=== PATIENT | female | born 1965 | race African-American/Black ===

== ENCOUNTER 2019-07-10 12:10 | Inpatient (IN) | payer BC ==
[~2019-07-10] VITALS: Ht 175.3 cm; Wt 92.3 kg
[~2019-07-10 12:10] MED LIST: HYDRALAZINE HCL10 MG PO; HYDRALAZINE HCL25 MG PO; METOPROLOL SUCC25 MG PO; NIFEDIPINE10 MG PO
[2019-07-10] MEDS ORDERED: HYDRALAZINE HCL 20 MG/ML VIAL IV STA (13:06)
[2019-07-10] MEDS ORDERED: ONDANSETRON HCL INJ 2MG/ML 2ML 2 MG/ML VIAL IV STA ×2 (13:06→16:23)
[2019-07-10] MEDS ORDERED: SODIUM CHLORIDE 0.9% 1000ML 1,000 ML IV STA (13:06)
[2019-07-10 13:23] LABS: BASOPHILS # (AUTO) 0.1 (0.0-0.1); BASOPHILS % 0.6 % (0.0-1.0); EOSINOPHILS # (AUTO) 0.2 (0.0-0.4); EOSINOPHILS % 1.9 % (0.0-6.0); HEMOGLOBIN 7.1 g/dL (12.0-16.0); LYMPHOCYTES # (AUTO) 2.2 (1.0-3.2); LYMPHOCYTES % 27.4 % (18.0-39.1); MEAN CORPUSCULAR HEMOGLOBIN 28.9 pg (28-32); MEAN CORPUSCULAR HGB CONC 31.7 g/dL (31-35); MEAN CORPUSCULAR VOLUME 91.1 fL (81-99); MONOCYTES # (AUTO) 0.6 (0.2-0.8); MONOCYTES % 7.3 % (4.4-11.3); NEUTROPHILS % 62.2 % (38.7-80.0); PLATELET COUNT 191 x10e3/uL (140-360); RED BLOOD COUNT 2.46 x10e6/uL (3.6-5.1); RED CELL DISTRIBUTION WIDTH 15.5 % (11.7-14.4)
[2019-07-10 13:37] LABS: BILIRUBIN,URINE NEGATIVE (NEGATIVE); CLARITY,URINE CLEAR (CLEAR); COLOR,URINE YELLOW (YELLOW); KETONES,URINE NEGATIVE (NEGATIVE); LEUKOCYTE ESTERASE ,URINE SMALL (NEGATIVE); NITRITE,URINE NEGATIVE (NEGATIVE); URINE UROBILINOGEN 0.2 mg/dL (0.2 - 1)
[2019-07-10 13:38] LABS: ALBUMIN 2.7 g/dL (3.5-5.0); ALBUMIN/GLOBULIN RATIO 0.4 (0.8-2.0); ANION GAP 9.4 mmol/L (8-16); CREATININE, SERUM 6.04 mg/dL (0.57-1.11); POTASSIUM 3.4 mmol/L (3.5-5.1)
[2019-07-10 13:39] LABS: HEMATOCRIT 22.4 % (34.2-44.1); PROTEIN,URINE DIPSTICK 2+ (NEGATIVE)
--- NOTE | 2019-07-10 13:42 | Diagnostic Imaging Report ---
Chest, 1 view, 07/10/2019. History: Chest tightness, vomiting. Comparison: None available. Findings: The cardiomediastinal silhouette and pulmonary vasculature are within normal limits for a portable exam. There is no focal consolidation or pleural effusion. There are no acute osseous or soft tissue abnormalities. Impression: No acute cardiopulmonary abnormality. Signed by: Theodore Santos on 07/10/2019 1:39 PM
[2019-07-10 13:44] LABS: BACTERIA,URINE FEW /HPF; EPITHELIAL CELLS,URINE FEW /LPF
[2019-07-10 14:38] LABS: INR 1.08; PROTHROMBIN TIME 14.5 seconds (11.9-14.5)
[2019-07-10 14:39] LABS: PARTIAL THROMBOPLASTIN TIME 30.3 seconds (23.8-35.5)
[2019-07-10] MEDS ORDERED: METOPROLOL TARTRATE INJ 1 MG/ML VIAL ONE (14:55)
[2019-07-10] MEDS ORDERED: METOPROLOL TARTRATE INJ 1 MG/ML VIAL IV ONE (15:00)
--- NOTE | 2019-07-10 16:41 | Diagnostic Imaging Report ---
CT of the abdomen and pelvis, without contrast, 07/10/2019. History: Hypertension, abdominal pain. Comparison: None available. Technique: Multidetector CT scanning of the abdomen and pelvis was performed from the level of the lung bases to the inferior pubic rami without intravenous or oral contrast. Coronal and sagittal multiplanar reformations were obtained. RADIATION DOSE: Total DLP: 766 mGy*cm Dose modulation, iterative reconstruction, and/or weight based adjustment of the mA/kV was utilized to reduce the radiation dose to as low as reasonably achievable. Discussion: Examination is limited without contrast. Lung bases: No visualized abnormalities. Abdomen: The liver is prominent measuring over 18 cm in length in the right midclavicular line. The gallbladder, biliary tree, spleen, pancreas, adrenal glands, and kidneys are unremarkable. The abdominal aorta is within normal limits. There is no bowel dilatation. The appendix is visualized and is normal. There is no evidence of adenopathy or free fluid. A small fat-containing umbilical hernia is present. Pelvis: The bladder, uterus, and adnexa are unremarkable. Bilateral tubal ligation clips are present. There is no evidence of adenopathy. Trace free fluid is present, likely physiologic. Bones and soft tissues: No acute abnormality. IMPRESSION: 1. Mild hepatomegaly. 2. Small fat-containing hernia. Otherwise unremarkable noncontrast exam. No evidence of cholelithiasis, nephrolithiasis, or appendicitis. Signed by: Theodore Santos on 07/10/2019 4:38 PM
[2019-07-10] MEDS ORDERED: METOPROLOL SUCCINATE 25 MG TAB XL PO SCH (17:00)
[2019-07-10] MEDS ORDERED: PROMETHAZINE 25MG/ NS 50ML (IV) IV PRN (17:30)
[2019-07-10] MEDS ORDERED: PROMETHAZINE 25MG/SOD CHL 0.9% 50 ML ONE (17:37)
[2019-07-10] MEDS: CEFTRIAXONE SOD 1 GM/NS 50 ML 50 ML IV SCH (18:06)
[2019-07-10] MEDS: HYDRALAZINE HCL 20 MG/ML VIAL IV PRN (18:06)
[2019-07-10] MEDS ORDERED: ACETAMINOPHEN 325 MG TAB PO PRN (18:45)
[2019-07-10] MEDS: ACETAMINOPHEN 1000 MG/100 ML IV PRN (19:04)
[2019-07-10 20:00] VITALS: BP 189/90
[2019-07-10] MEDS: METOPROLOL SUCCINATE 50 MG TAB XL PO SCH (20:17)
[2019-07-10 20:25] VITALS: BP 183/90
--- NOTE | 2019-07-10 20:25 | NUR ---
New admission came from [facility] in a stretcher with c/o nausea,vomiting.assessment done.no resp.distress.Bp noted 183/90.medication given iv to right ac #20 g patent.oriented to the unit.bed locked and in lowest position.phone and call light within reach.instructed to call for assistance as needed.family member at bed side.
[2019-07-10 21:00] VITALS: BP 183/90
[2019-07-10] MEDS: PANTOPRAZOLE 40 MG 10ML VIAL IV SCH (21:27)
[2019-07-10] MEDS: HYDRALAZINE HCL 25 MG TAB PO SCH (21:28)
[2019-07-10] MEDS: ONDANSETRON HCL INJ 2MG/ML 2ML 2 MG/ML VIAL IV PRN (21:28)
[2019-07-10] MEDS: LORAZEPAM INJ 2 MG/ML VIAL IV PRN (21:39)
[2019-07-11] VITALS (16 sets, daily range): BP systolic 139–176; BP diastolic 81–99
[2019-07-11] MEDS: METOCLOPRAMIDE HCL 10 MG/2ML VIAL IV SCH ×4 (00:21→17:35)
--- NOTE | 2019-07-11 00:22 | NUR ---
IS IN THE UNIT.RECEIVED NEW ORDERS .IMPLEMENTED ORDERS.
--- NOTE | 2019-07-11 01:44 | NUR ---
Notified to consults. will see the pt.tomorrow morning.
--- NOTE | 2019-07-11 06:50 | NUR ---
Bed side shift report given to the oncoming Rn.stable condition.
--- NOTE | 2019-07-11 07:00 | NUR ---
BEDSIDE ROUNDS COMPLETE NO DISTRESS NOTED UPDATED ON POC VOICED UNDERSTANDING, R AC 20G NO SS OF INFILTRATION NOTED, JUAN CARLOS PAIN AT THIS TIME, CALL LIGHT IN REACH WILL CONTINUE TO MONITOR
--- NOTE | 2019-07-11 08:20 | NUR ---
16f norton placed per charge nurse, pt tolerated , pt placed on 24hr urine as per ordered.
--- NOTE | 2019-07-11 08:32 | NUR ---
PT CO NAUSEA, PRN MEDS ADMINISTERED
[2019-07-11] MEDS: PANTOPRAZOLE 40 MG 10ML VIAL IV SCH ×2 (08:34→20:42)
[2019-07-11] MEDS: ONDANSETRON HCL INJ 2MG/ML 2ML 2 MG/ML VIAL IV PRN ×3 (08:35→17:53)
--- NOTE | 2019-07-11 08:37 | NUR ---
spoke with lab re;stat cmp ordered at 0731 and still awaiting results. results pending at this time
[2019-07-11 08:49] LABS: ALBUMIN 2.5 g/dL (3.5-5.0); ALBUMIN/GLOBULIN RATIO 0.4 (0.8-2.0); ANION GAP 11.7 mmol/L (8-16); CALCIUM 8.8 mg/dL (8.4-10.2); CREATININE, SERUM 6.14 mg/dL (0.57-1.11); POTASSIUM 3.7 mmol/L (3.5-5.1)
[2019-07-11] MEDS ORDERED: NIFEDIPINE CR 30 MG TAB PO SCH (09:00)
[2019-07-11] MEDS ORDERED: NIFEDIPINE 10 MG CAP PO SCH (09:00)
--- NOTE | 2019-07-11 09:14 | NUR ---
spoke with dr le re: cmp results no new orders at this time.
[2019-07-11] MEDS: HYDRALAZINE HCL 25 MG TAB PO SCH ×3 (09:15→20:42)
[2019-07-11] MEDS: METOPROLOL SUCCINATE 50 MG TAB XL PO SCH ×2 (09:15→17:00)
[2019-07-11] MEDS ORDERED: DEXTROSE 5%/0.45% SOD CHL 1,000 ML IV SCH (11:15)
--- NOTE | 2019-07-11 11:43 | NUR ---
PT CO NAUSEA PRN MEDS ADMINISTERED
[2019-07-11] MEDS ORDERED: SODIUM CHLORIDE 0.9% 250ML 250 ML IV ONE (13:15)
[2019-07-11] MEDS ORDERED: FUROSEMIDE INJ 10 MG/ML 4 ML VIAL IV PRN (13:45)
[2019-07-11] MEDS ORDERED: FUROSEMIDE INJ 10 MG/ML 4 ML VIAL IV ONE ×2 (14:00→18:45)
[2019-07-11] MEDS: PROMETHAZINE 25MG/SOD CHL 0.9% 50 ML IV PRN (14:10)
--- NOTE | 2019-07-11 14:20 | NUR ---
PT CO NAUSEA, PRN PHENERGAN ADMINISTERED PER ORDERED
--- NOTE | 2019-07-11 15:37 | Progress Note ---
DATE: 07/11/2019 Internal Medicine Progress Note SUBJECTIVE: The patient is feeling better. Still has some nausea today. PHYSICAL EXAMINATION: VITAL SIGNS: Blood pressure is 166/99, temperature 98.6, heart rate 92 per minute, respiratory rate 16 per minute, oxygen saturation 99%. HEART: Showed regular rhythm. Normal S1, S2 sound. LUNGS: Clear bilaterally. ABDOMEN: Soft. EXTREMITIES: Show no evidence of cyanosis or hematoma. LABORATORY STUDIES: On the blood work, we have CBC, white blood count 8.08, hemoglobin 7.1, hematocrit 32.4, platelet count 181,000. On the CMP, sodium 139, potassium 3.7, chloride 109, BUN 31, creatinine 6.14, glucose 102, calcium 8.8, total bilirubin 0.3, AST 21, ALT 11, alkaline phosphatase 38. CK is 195, CK-MB normal at 2.0, troponin 0.035. B natriuretic peptide 2052.5. Total protein 8.9, albumin 2.5, globulin 6.4, albumin globulin ratio is 0.4. Urine culture is negative. Chest x-ray is negative. CT of the abdomen shows hernia, mild hepatomegaly, and small fat containing hernia, otherwise no abnormalities. IMPRESSION: 1. Vomiting. 2. Acute on chronic renal failure, stage 4. 3. Uncontrolled hypertension with chronic renal failure. 4. Acute on chronic anemia. PLAN OF TREATMENT: We are going to continue with ceftriaxone 1 g IV once a day for the possibility of UTI. Continue promethazine 25 mg IV q.6 hours as needed for vomiting, Tylenol 1000 mg IV q.6 hours as needed for mild pain, hydralazine 25 mg 3 times a day, hydralazine 10 mg IV q.4 hours as needed for hypertension, lorazepam 1 mg IV q.6 hours as needed for anxiety, metoclopramide 10 mg IV q.6 hours, metoprolol 50 mg twice a day, and metoprolol has been given one time IV. Continue nifedipine 90 mg daily. Continue Zofran 4 mg IV q.4 hours as needed for nausea and vomiting, Protonix 40 mg IV twice a day. We are going to start the patient also on D5 normal saline at 80 mL an hour also because of the vomiting and the renal insufficiency. , the harness puller on the case, Dr. Kendall Holm, vacuum conditioner operator, Dr. Nichole Fall, director of real estate, also because of multiple myeloma. We are going the patient upgrade the diet as tolerated. MD VERONICA Rincon/ALEXANDER /[id number]
[2019-07-11] MEDS: CEFTRIAXONE SOD 1 GM/NS 50 ML 50 ML IV SCH (15:46)
[2019-07-11] MEDS: HYDRALAZINE HCL 20 MG/ML VIAL IV PRN ×2 (15:48→20:42)
[2019-07-11] MEDS: ACETAMINOPHEN 1000 MG/100 ML IV PRN (16:21)
--- NOTE | 2019-07-11 17:23 | NUR ---
NURSE AT BEDSIDE , PT RAISES UP IN BED ATTEMPTING TO VOMIT, PT LAYS BACK IN BED, STARTS SHAKING, AND HAS WHAT APPEARS TO BE SALIVA, FOAMING AT THE MOUTH, RAPID RESPONSE CALLED, TEAM ARRIVE, DR BLAS LUIS.
--- NOTE | 2019-07-11 17:33 | NUR ---
SPOKE WITH DR ODONNELL RE: RAPID RESPONSE, AND UPDATED ON PT STATUS ORDERS TO STOP IVF, REGLAN, AND LABS FOR AM.
--- NOTE | 2019-07-11 17:53 | NUR ---
PT CO NAUSEA, PRN MEDS ADMINISTERED
[2019-07-11 18:24] LABS: BASOPHILS # (AUTO) 0.1 (0.0-0.1); BASOPHILS % 0.7 % (0.0-1.0); EOSINOPHILS # (AUTO) 0.2 (0.0-0.4); LYMPHOCYTES # (AUTO) 2.7 (1.0-3.2); LYMPHOCYTES % 28.1 % (18.0-39.1); MEAN CORPUSCULAR HEMOGLOBIN 29.1 pg (28-32); MEAN CORPUSCULAR HGB CONC 31.7 g/dL (31-35); MONOCYTES # (AUTO) 0.8 (0.2-0.8); MONOCYTES % 8.5 % (4.4-11.3); NEUTROPHILS # (AUTO) 5.8 (2.1-6.9); PLATELET COUNT 197 x10e3/uL (140-360); RED BLOOD COUNT 2.37 x10e6/uL (3.6-5.1); RED CELL DISTRIBUTION WIDTH 15.8 % (11.7-14.4)
[2019-07-11 18:26] LABS: HEMATOCRIT 21.8 % (34.2-44.1); HEMOGLOBIN 6.9 g/dL (12.0-16.0)
[2019-07-11 18:36] LABS: ANION GAP 11.2 mmol/L (8-16); CALCIUM 8.5 mg/dL (8.4-10.2); CREATININE, SERUM 6.01 mg/dL (0.57-1.11); POTASSIUM 3.2 mmol/L (3.5-5.1)
--- NOTE | 2019-07-11 18:50 | NUR ---
SPOKE WITH DR HERNANDEZ RE: RAPID, ORDERS RECEIVED
--- NOTE | 2019-07-11 19:03 | Consultation ---
DATE OF CONSULTATION: 07/11/2019 HISTORY OF PRESENT ILLNESS: Ms. 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 Due to get her chemotherapy, admitted with 4-day history of nausea, vomiting, and poorly-controlled blood pressure. She is currently lying supine, in no apparent distress. Denies shortness of breath or nausea. Denies fever or chills. ALLERGIES: SHE HAS NO APPARENT DRUG ALLERGIES. CURRENT MEDICATIONS: She is on IV fluids plus nifedipine 90 mg daily, ondansetron p.r.n., Protonix 40 mg IV q.12 hours, Zofran p.r.n., D5 half at 75 mL an hours, ceftriaxone 1 g IV piggyback q.24 h. Urine cultures, preliminary are pending. SOCIAL HISTORY: She does not smoke or drink. FAMILY HISTORY: Significant for hypertension, has underlying history of chronic kidney disease stage 4, history of hypertension. LABORATORY DATA: Workup here, chest x-ray negative. CT of abdomen and pelvis without contrast shows mild hepatomegaly, small fat containing hernia, otherwise relatively unremarkable. PHYSICAL EXAMINATION: GENERAL: Awake, alert, oriented x3, lying supine, in no apparent distress. VITAL SIGNS: Blood pressure 153/96, pulse rate 91, afebrile, oxygen saturation 99% on room air. HEAD: Cornea clear. Mucous membranes are moist. There is definite evidence of conjunctival pallor. NECK: Veins flat. LUNGS: Relatively clear. HEART: S1, S2, audible. ABDOMEN: Otherwise, soft, nontender. No apparent visceromegaly. EXTREMITIES: Lower extremity, no edema. LABORATORY TESTS: Show worsening of serum creatinine. She is anemic, hemoglobin 7.1 with potassium 3.7, creatinine 6.14, and bicarbonate 22. ASSESSMENT AND PLAN: Underlying advanced kidney failure, perhaps end-stage renal disease. Discussed with patient, anemia multifactorial secondary to myeloma, underlying myeloma kidney. The patient is disabled from renal standpoint. I will obtain 24-hour urine collection for creatinine clearance and proteins. Possibility of dialysis and renal replacement therapy discussed with the patient. Adjust Procardia to 60 mg twice a day. Please see orders. MD GIOVANNI Lewis/ALEXANDER /[id number]
--- NOTE | 2019-07-11 19:16 | NUR ---
SPOKE WITH DR MARIE FOR CLARIFICATION OF DIALYSIS CATHETER, ORDERS FOR STAT NONTUNNELED DIALYSIS CATHETER, MD DR MARIE AGREED TO TRANSFER TO ICU FOR HIGHER LEVEL OF CARE
--- NOTE | 2019-07-11 19:20 | NUR ---
REPORT GIVEN TO MICA PLATE LAYER, PT TRANSFERRED TO RM 190, LEFT WITH ALL BELONGINGS
--- NOTE | 2019-07-11 19:30 | NUR ---
Received patient from room 111. Patient laying in bed with no s/s distress at this time. Explained to patient plan of care and need for transfer to ICU. Patient began c/o anxiety and requesting medication for it. Dr. Henriquez called regarding anxiety and to clarify when HD Non-tunneled cath should be placed. Orders received for Xanax PRN and Dr. Henriquez stated that HD cath could be placed in the AM. Radiology updated and PRN order entered.
--- NOTE | 2019-07-11 19:50 | NUR ---
Patient refusing PO Xanax requesting IV anxiety medication.
[2019-07-11] MEDS ORDERED: ALPRAZOLAM 0.25 MG TAB ONE (19:56)
[2019-07-11] MEDS ORDERED: ALPRAZOLAM 0.25 MG TAB PO PRN (20:15)
[2019-07-11] MEDS ORDERED: SODIUM CHLORIDE 0.9% 250ML 250 ML ONE (20:36)
[2019-07-11] MEDS: LORAZEPAM INJ 2 MG/ML VIAL IV PRN (20:42)
[2019-07-11] MEDS: NIFEDIPINE CR 30 MG TAB PO SCH (20:43)
[2019-07-12] VITALS (25 sets, daily range): BP systolic 144–180; BP diastolic 80–108
[2019-07-12] MEDS: HYDRALAZINE HCL 20 MG/ML VIAL IV PRN ×3 (05:30→20:33)
--- NOTE | 2019-07-12 07:11 | NUR ---
Paged Dr. Lawton for ICU finish carpenter. Awaiting call back. Passed on to day shift RN, Latrell.
[2019-07-12 07:59] LABS: BASOPHILS # (AUTO) 0.1 (0.0-0.1); BASOPHILS % 0.6 % (0.0-1.0); EOSINOPHILS # (AUTO) 0.3 (0.0-0.4); EOSINOPHILS % 2.7 % (0.0-6.0); HEMOGLOBIN 9.4 g/dL (12.0-16.0); LYMPHOCYTES # (AUTO) 2.1 (1.0-3.2); LYMPHOCYTES % 21.5 % (18.0-39.1); MEAN CORPUSCULAR HEMOGLOBIN 29.6 pg (28-32); MEAN CORPUSCULAR HGB CONC 32.4 g/dL (31-35); MEAN CORPUSCULAR VOLUME 91.2 fL (81-99); MONOCYTES # (AUTO) 0.7 (0.2-0.8); MONOCYTES % 7.3 % (4.4-11.3); NEUTROPHILS # (AUTO) 6.5 (2.1-6.9); NEUTROPHILS % 67.1 % (38.7-80.0); PLATELET COUNT 203 x10e3/uL (140-360); RED BLOOD COUNT 3.18 x10e6/uL (3.6-5.1); RED CELL DISTRIBUTION WIDTH 15.1 % (11.7-14.4)
[2019-07-12] MEDS ORDERED: LIDOCAINE HCL 1% LOCAL INJ 20 ML VIAL ONE (08:02)
[2019-07-12 08:23] LABS: ALBUMIN 2.7 g/dL (3.5-5.0); ALBUMIN/GLOBULIN RATIO 0.4 (0.8-2.0); ANION GAP 11.4 mmol/L (8-16); CALCIUM 8.9 mg/dL (8.4-10.2); CREATININE, SERUM 6.34 mg/dL (0.57-1.11); POTASSIUM 3.4 mmol/L (3.5-5.1)
--- NOTE | 2019-07-12 08:25 | NUR ---
Pt is out to radiology for placement of HD cath with interventional radiology. Rebekah COCHRAN with pt.
--- NOTE | 2019-07-12 08:28 | NUR ---
PT NOT IN THE ROOM, GONE FOR HEMODIALYSIS CATHETER PLACEMENT
[2019-07-12] MEDS ORDERED: SUMATRIPTAN SUCCINATE 25 MG TAB PO PRN (08:30)
[2019-07-12 08:43] LABS: FERRITIN 453.88 ng/mL (4.63-204.00)
[2019-07-12] MEDS: HYDRALAZINE HCL 25 MG TAB PO SCH ×3 (09:00→21:00)
[2019-07-12] MEDS: NIFEDIPINE CR 30 MG TAB PO SCH ×2 (09:00→21:00)
[2019-07-12] MEDS: METOPROLOL SUCCINATE 50 MG TAB XL PO SCH ×2 (09:00→16:10)
[2019-07-12 09:16] LABS: DURATION, URINE COLLECTION 24 hrs
--- NOTE | 2019-07-12 09:20 | NUR ---
Pt has returned from placement of hemodialysis catheter. [facility] per Dr Henry this am.
--- NOTE | 2019-07-12 09:28 | Diagnostic Imaging Report ---
Procedure: Non tunneled hemodialysis catheter placement. Medications: 1% lidocaine. The patient's vital signs, including pulse oximetry, were continuously monitored by the interventional radiology nurse. Fluoroscopy time: 0.1 minutes. Dose area product: 0.257 cGycm2 Contrast used: None Estimated blood loss: Less than 2 cc Complications: No immediate. Procedure in detail: Informed consent for the procedure was obtained from the patient after discussion of risks and benefits. The right neck was prepped and draped in the standard sterile fashion after the patient was placed in the supine position on the IR C-arm fluoroscopic table. 1% lidocaine was administered into the skin and subcutaneous tissues of the right lower neck for local anesthesia. Then, under continuous sonographic guidance, a 21-gauge micropuncture needle was advanced into the right internal jugular vein. A 0.018 " wire was advanced centrally under fluoroscopic guidance. The needle was then removed and access was secured with a micropuncture sheath. A 0.035 " Amplatz was then advanced through the micropuncture sheath into the inferior vena cava under fluoroscopic guidance. The micropuncture sheath was then removed over the wire and the tract was serially dilated. Finally, a 13.5-Citizen Of [place] 15 cm long Bard Trialysis catheter was advanced over the wire under fluoroscopic guidance. The catheter tip was noted at the cavoatrial junction. Each catheter lumen showed good bidirectional flow. The patient tolerated the procedure well without immediate complication. Impression: 1. Successful placement of a non tunneled triple lumen hemodialysis catheter (13.5-Citizen Of [place], 15 cm length) by a right internal jugular approach. 2. The line is cleared for immediate use. Signed by: Dr. Kristopher Flores DO on 07/12/2019 9:24 AM
--- NOTE | 2019-07-12 09:28 | Diagnostic Imaging Report ---
Procedure: Non tunneled hemodialysis catheter placement. Medications: 1% lidocaine. The patient's vital signs, including pulse oximetry, were continuously monitored by the interventional radiology nurse. Fluoroscopy time: 0.1 minutes. Dose area product: 0.257 cGycm2 Contrast used: None Estimated blood loss: Less than 2 cc Complications: No immediate. Procedure in detail: Informed consent for the procedure was obtained from the patient after discussion of risks and benefits. The right neck was prepped and draped in the standard sterile fashion after the patient was placed in the supine position on the IR C-arm fluoroscopic table. 1% lidocaine was administered into the skin and subcutaneous tissues of the right lower neck for local anesthesia. Then, under continuous sonographic guidance, a 21-gauge micropuncture needle was advanced into the right internal jugular vein. A 0.018 " wire was advanced centrally under fluoroscopic guidance. The needle was then removed and access was secured with a micropuncture sheath. A 0.035 " Amplatz was then advanced through the micropuncture sheath into the inferior vena cava under fluoroscopic guidance. The micropuncture sheath was then removed over the wire and the tract was serially dilated. Finally, a 13.5-Niuean 15 cm long Bard Trialysis catheter was advanced over the wire under fluoroscopic guidance. The catheter tip was noted at the cavoatrial junction. Each catheter lumen showed good bidirectional flow. The patient tolerated the procedure well without immediate complication. Impression: 1. Successful placement of a non tunneled triple lumen hemodialysis catheter (13.5-Niuean, 15 cm length) by a right internal jugular approach. 2. The line is cleared for immediate use. Signed by: Dr. Kristopher Flores DO on 07/12/2019 9:24 AM
--- NOTE | 2019-07-12 09:28 | Diagnostic Imaging Report ---
Procedure: Non tunneled hemodialysis catheter placement. Medications: 1% lidocaine. The patient's vital signs, including pulse oximetry, were continuously monitored by the interventional radiology nurse. Fluoroscopy time: 0.1 minutes. Dose area product: 0.257 cGycm2 Contrast used: None Estimated blood loss: Less than 2 cc Complications: No immediate. Procedure in detail: Informed consent for the procedure was obtained from the patient after discussion of risks and benefits. The right neck was prepped and draped in the standard sterile fashion after the patient was placed in the supine position on the IR C-arm fluoroscopic table. 1% lidocaine was administered into the skin and subcutaneous tissues of the right lower neck for local anesthesia. Then, under continuous sonographic guidance, a 21-gauge micropuncture needle was advanced into the right internal jugular vein. A 0.018 " wire was advanced centrally under fluoroscopic guidance. The needle was then removed and access was secured with a micropuncture sheath. A 0.035 " Amplatz was then advanced through the micropuncture sheath into the inferior vena cava under fluoroscopic guidance. The micropuncture sheath was then removed over the wire and the tract was serially dilated. Finally, a 13.5-Norwegian 15 cm long Bard Trialysis catheter was advanced over the wire under fluoroscopic guidance. The catheter tip was noted at the cavoatrial junction. Each catheter lumen showed good bidirectional flow. The patient tolerated the procedure well without immediate complication. Impression: 1. Successful placement of a non tunneled triple lumen hemodialysis catheter (13.5-Norwegian, 15 cm length) by a right internal jugular approach. 2. The line is cleared for immediate use. Signed by: Dr. Kristopher Flores DO on 07/12/2019 9:24 AM
--- NOTE | 2019-07-12 09:28 | Diagnostic Imaging Report ---
Procedure: Non tunneled hemodialysis catheter placement. Medications: 1% lidocaine. The patient's vital signs, including pulse oximetry, were continuously monitored by the interventional radiology nurse. Fluoroscopy time: 0.1 minutes. Dose area product: 0.257 cGycm2 Contrast used: None Estimated blood loss: Less than 2 cc Complications: No immediate. Procedure in detail: Informed consent for the procedure was obtained from the patient after discussion of risks and benefits. The right neck was prepped and draped in the standard sterile fashion after the patient was placed in the supine position on the IR C-arm fluoroscopic table. 1% lidocaine was administered into the skin and subcutaneous tissues of the right lower neck for local anesthesia. Then, under continuous sonographic guidance, a 21-gauge micropuncture needle was advanced into the right internal jugular vein. A 0.018 " wire was advanced centrally under fluoroscopic guidance. The needle was then removed and access was secured with a micropuncture sheath. A 0.035 " Amplatz was then advanced through the micropuncture sheath into the inferior vena cava under fluoroscopic guidance. The micropuncture sheath was then removed over the wire and the tract was serially dilated. Finally, a 13.5-Bel[place]ian 15 cm long Bard Trialysis catheter was advanced over the wire under fluoroscopic guidance. The catheter tip was noted at the cavoatrial junction. Each catheter lumen showed good bidirectional flow. The patient tolerated the procedure well without immediate complication. Impression: 1. Successful placement of a non tunneled triple lumen hemodialysis catheter (13.5-[place]ian, 15 cm length) by a right internal jugular approach. 2. The line is cleared for immediate use. Signed by: Dr. Kristopher Flores DO on 07/12/2019 9:24 AM
[2019-07-12 09:34] LABS: CREATININE,URINE RANDOM 64.63 mg/dL (47-110)
[2019-07-12 09:55] LABS: CREATININE 24 HOUR,URINE 1486 mg/24hr (600-1800); TOTAL VOLUME, URINE 2300 ml/24hr (800-2000)
[2019-07-12 09:56] LABS: TOTAL PROTEIN 24HR, URINE 137.99977 mg/24hr (50-100); TOTAL PROTEIN, URINE < 6 mg/dL
[2019-07-12] MEDS ORDERED: ACETAMINOPHEN/ASPIRIN/CAFFEINE 1 EA TAB PO PRN (10:00)
[2019-07-12] MEDS: PANTOPRAZOLE 40 MG 10ML VIAL IV SCH ×2 (10:55→21:26)
[2019-07-12] MEDS: LORAZEPAM INJ 2 MG/ML VIAL IV PRN (12:40)
[2019-07-12] MEDS: ONDANSETRON HCL INJ 2MG/ML 2ML 2 MG/ML VIAL IV PRN ×2 (12:41→19:16)
--- NOTE | 2019-07-12 13:32 | Progress Note ---
DATE: 07/12/2019 SUBJECTIVE: Apparently had instant square eyeballs rolled up and she was frothing at the mouth. No postictal type behavior was noted. CT scan is pending to start dialysis today. Temporary line was placed because of concern that maybe the uremia was causing encephalopathy issue. OBJECTIVE: GENERAL: Currently she feels better. VITAL SIGNS: Temperature 98, pulse 91, and blood pressure 156/94. CHEST: Clear. EXTREMITIES: No edema. ABDOMEN: Benign. : Hagen catheter in place. ASSESSMENT: 1. Hypertension. 2. Multiple myeloma with myeloma kidney getting worse and . 3. Limited minimal likelihood of recovery, so we will treat this as end-stage renal disease. 4. Mild hypokalemia. PLAN: Hemodialysis initiation today, start with a 2-hour treatment. Blood flow rate 200 mL/minute, dialysate flow rate 500 mL/minute. We will keep on a 3 potassium bath. Avoid any fluid removal for the time being as she appears grossly adjusted in terms of that. Continue to monitor blood pressure. Head CT will be requested. MD CRESCENCIO Puente/ALEXANDER /[id number]
--- NOTE | 2019-07-12 13:53 | Progress Note ---
DATE: 07/12/2019 Internal Medicine Progress Note SUBJECTIVE: The patient is doing better. She still has some nausea but no vomiting. OBJECTIVE: VITAL SIGNS: Blood pressure is 156/94, temperature 98.1, heart rate 91 per minute, respiratory rate 20 per minute, oxygen saturation 98%. HEART: Regular rhythm. Normal S1, S2 sound. LUNGS: Clear bilaterally. ABDOMEN: Soft. LABORATORY DATA: On the BMP; sodium 139, potassium 3.4, chloride 108, CO2 23, BUN 27, creatinine is 6.34, glucose is 101. On the CBC; white blood count 9.74, hemoglobin 9.4, hematocrit 29.0, platelet count 203,000. PT 14.5, INR 1.08, PTT 30.3. AST 24, ALT 15, total bilirubin 0.6, alkaline phosphatase 40. FINAL IMPRESSION: 1. Acute on chronic renal failure, stage 4. 2. Hypertension with hypertensive nephropathy. 3. Vomiting. 4. Migraine headaches. PLAN OF TREATMENT: We are going to continue with the Zofran 4 mg IV every 4 hours as needed for nausea and vomiting. Phenergan 12.5 mg IV q.6 hours as needed for vomiting, hydralazine 10 mg IV q.4 hours as needed for hypertension, hydralazine 25 mg three times a day, lorazepam 1 mg q.6 hours as needed, Excedrin one tablet q.6 hours as needed for migraine headaches. She apparently is allergic to Imitrex. Continue Zofran 4 mg IV q.4 hours as needed, nifedipine 60 mg twice a day, metoprolol 50 mg twice a day, furosemide 40 mg as needed, Protonix 40 mg twice a day, alprazolam 0.25 mg twice a day. We are going to also give her some metoprolol 5 mg IV q.4-6 hours as needed for tachycardia or hypertension. The patient already have the dialysis catheter placed, dialysis catheter. She is going to be in intensive care unit for now. Case has been discussed with the family member, nurse at bedside. TIME SPENT: 60 minutes. MD VERONICA Rincon/ALEXANDER /[id number]
--- NOTE | 2019-07-12 14:58 | Consultation ---
DATE OF CONSULTATION: 07/12/2019 Pulmonary Critical Care Consultation REASON FOR CONSULTATION: Altered mental status. Transferred to the ICU. HISTORY OF PRESENT ILLNESS: Ms. Quinonez is a 53-year-old woman, who up until about a month ago had no prior past medical history until she presented here. She was found to be in renal failure. Ultimately, renal failure, having anemia, hypertension, and ultimately diagnosed with multiple myeloma. She presented here to the hospital on or about the 7th with about a 4-day history of nausea and vomiting. She was found to be profoundly anemic. She was transferred to the ICU for altered mental status were apparently overnight she was found foaming at the mouth with her eyes rolled back. Currently, she is awake, alert, and denies any complaints except wanting to have some crackers, but she still has some nausea. PAST MEDICAL HISTORY: As described above. PAST SURGICAL HISTORY: Hysterectomy. SOCIAL HISTORY: No tobacco, alcohol, or drug use. ALLERGIES: PENICILLINS. FAMILY HISTORY: Noncontributory. PHYSICAL EXAMINATION: VITAL SIGNS: She is afebrile. Her heart rate is 96, sinus rhythm by the telemetry. Respiratory rate is in the teens. Saturation on room air is 100%. Blood pressure 166/98. Her antihypertensives been held given her 1st dialysis is about to start. GENERAL APPEARANCE: This is an ill-appearing woman, who is awake, alert. She is not in any distress. HEENT: Pupils are round and reactive. Mucous membranes are moist. She does have some mild mucosal pallor. Cranial nerves are intact otherwise. NECK: Supple. She has a right-sided Trialysis catheter in place. HEART: Regular rate and rhythm without murmurs, rubs, or gallops. LUNGS: Clear to auscultation. ABDOMEN: Soft, nontender. There is no rebound, no guarding. EXTREMITIES: No cyanosis, clubbing, or edema. SKIN: Warm and dry without rash. NEUROLOGIC: She is nonfocal. LABORATORY DATA: Labs; post transfusion hemoglobin and hematocrit 9.4 and 29. Her hemoglobin was 6.9 prior. White count 9, platelets 203,000. Chemistries are notable for potassium of 3.4, BUN and creatinine of 27 and 6.3, albumin is 2.7, globulin is 6.8 with a total protein of 9.5. Coags were normal. Urine has proteinuria. IMAGING DATA: Chest x-ray done on 07/10/[address] of the abdomen shows mild fatty liver and a hernia. ASSESSMENT: 1. Altered mental status. 2. Acute kidney injury on chronic kidney disease versus myeloma kidney. 3. Multiple myeloma. 4. Anemia secondary to the myeloma and kidney disease. She has significant amount of blasts in the marrow. 5. Hypertension. 6. Nausea and vomiting. RECOMMENDATIONS AND PLAN: We will get a CT of her head after dialysis since this was started. She will have her dialysis obviously. Case was discussed with Renal. We will continue her antihypertensives and we will advance her diet as she tolerates and provide antiemetics. The case was discussed at length with the patient, family nurse, and Nephrology. MD SAHARA Rivero/ALEXANDER /[id number]
[2019-07-12] MEDS ORDERED: HEPARIN SOD (PORCINE) 1000 UNIT/ML SDV IV PRN (15:15)
[2019-07-12] MEDS: PROMETHAZINE 25MG/SOD CHL 0.9% 50 ML IV PRN (16:13)
[2019-07-12] MEDS: CEFTRIAXONE SOD 1 GM/NS 50 ML 50 ML IV SCH (16:54)
[2019-07-12] MEDS ORDERED: ACETAMINOPHEN 1000 MG/100 ML IV PRN (19:45)
--- NOTE | 2019-07-12 20:44 | Diagnostic Imaging Report ---
EXAMINATION: Head CT without contrast. HISTORY:Altered mental status. COMPARISON:None. TECHNIQUE: Multidetector axial images were obtained from the foramen magnum to the vertex without contrast. The images were reconstructed using brain and bone algorithms. Thin section brain images were reformatted into coronal and sagittal planes. Dose modulation, iterative reconstruction, and/or weight based adjustment of the mA/kV was utilized to reduce the radiation dose to as low as reasonably achievable. Intravenous contrast: None IMAGE QUALITY: Acceptable. FINDINGS: Skull/scalp: No lytic or blastic. lesions. No surgical changes. Parenchyma: No abnormal density. No acute hemorrhage, mass or acute major vascular territorial infarct. Arteries: No density suggestive of thrombosis. Dural sinuses: No abnormal density suggestive of thrombosis. Ventricles: No hydrocephalus or displacement. Extra-axial spaces: No abnormal density. Brain volume: Normal for age. Craniocervical junction: No mass, Chiari malformation, or basilar invagination. Sella: No mass. Paranasal/mastoid sinuses: Imaged portions unremarkable. IMPRESSION: No intracranial abnormality. Signed by: Dr. Stella Angeles M.D. on 07/12/2019 8:40 PM
[2019-07-12] MEDS: METOPROLOL TARTRATE INJ 1 MG/ML VIAL IV PRN (22:09)
[2019-07-13] VITALS (19 sets, daily range): BP systolic 147–182; BP diastolic 89–104
[2019-07-13] MEDS: HYDRALAZINE HCL 20 MG/ML VIAL IV PRN ×3 (01:09→10:22)
[2019-07-13] MEDS ORDERED: METOCLOPRAMIDE HCL 10 MG/2ML VIAL IV STA (02:59)
[2019-07-13] MEDS ORDERED: SODIUM CHLORIDE 0.9% IV ONE (03:15)
[2019-07-13] MEDS ORDERED: METOCLOPRAMIDE IV ONE (03:15)
[2019-07-13] MEDS ORDERED: METOCLOPRAMIDE HCL 10 MG/2ML VIAL ONE (03:47)
[2019-07-13] MEDS: METOPROLOL TARTRATE INJ 1 MG/ML VIAL IV PRN ×2 (04:15→13:16)
[2019-07-13 05:24] LABS: BASOPHILS # (AUTO) 0.1 (0.0-0.1); BASOPHILS % 0.7 % (0.0-1.0); EOSINOPHILS # (AUTO) 0.2 (0.0-0.4); EOSINOPHILS % 2.3 % (0.0-6.0); HEMOGLOBIN 9.4 g/dL (12.0-16.0); LYMPHOCYTES % 20.6 % (18.0-39.1); MEAN CORPUSCULAR HEMOGLOBIN 29.5 pg (28-32); MEAN CORPUSCULAR HGB CONC 32.4 g/dL (31-35); MEAN CORPUSCULAR VOLUME 90.9 fL (81-99); MONOCYTES # (AUTO) 0.8 (0.2-0.8); MONOCYTES % 8.5 % (4.4-11.3); NEUTROPHILS # (AUTO) 6.5 (2.1-6.9); NEUTROPHILS % 66.9 % (38.7-80.0); PLATELET COUNT 214 x10e3/uL (140-360); RED BLOOD COUNT 3.19 x10e6/uL (3.6-5.1); RED CELL DISTRIBUTION WIDTH 15.3 % (11.7-14.4)
[2019-07-13 05:45] LABS: ALBUMIN 2.6 g/dL (3.5-5.0); ALBUMIN/GLOBULIN RATIO 0.4 (0.8-2.0); ANION GAP 11.3 mmol/L (8-16); CALCIUM 8.6 mg/dL (8.4-10.2); CREATININE, SERUM 5.04 mg/dL (0.57-1.11); MAGNESIUM 1.6 MG/DL (1.3-2.1); POTASSIUM 3.3 mmol/L (3.5-5.1)
[2019-07-13] MEDS: ONDANSETRON HCL INJ 2MG/ML 2ML 2 MG/ML VIAL IV SCH ×3 (06:13→17:27)
[2019-07-13] MEDS: PROMETHAZINE 25MG/SOD CHL 0.9% 50 ML IV PRN (07:43)
[2019-07-13] MEDS: PANTOPRAZOLE 40 MG 10ML VIAL IV SCH ×2 (07:43→21:01)
[2019-07-13] MEDS: HYDRALAZINE HCL 25 MG TAB PO SCH ×3 (09:00→21:56)
[2019-07-13] MEDS: IRON SUCROSE 100 MG in SODIUM CHLORIDE 0.9% 100 ML 100 ML IV SCH (09:59)
[2019-07-13] MEDS: METOPROLOL SUCCINATE 50 MG TAB XL PO SCH ×2 (09:59→21:01)
[2019-07-13] MEDS: NIFEDIPINE CR 30 MG TAB PO SCH ×2 (10:12→21:56)
[2019-07-13] MEDS ORDERED: CLONIDINE HCL 0.3MG/24 HR PATCH TOP SCH (13:30)
--- NOTE | 2019-07-13 14:38 | Progress Note ---
DATE: 07/13/2019 Internal Medicine Progress Note SUBJECTIVE: The patient is still nauseated, but no vomiting. PHYSICAL EXAMINATION: HEART: Showed regular rhythm. Normal S1, S2 sound. LUNGS: Clear bilaterally. ABDOMEN: Soft. EXTREMITIES: Show no evidence of cyanosis or hematoma. VITAL SIGNS: Blood pressure 171/99, temperature 98.4, heart rate 81 per minute, respiratory rate 99 per minute, oxygen saturation 99%. LABORATORY STUDIES: On the CBC, white blood count 9.70, hemoglobin 9.4, hematocrit 29.0, platelet count 214,000. On the BMP; sodium 136, potassium 3.3, chloride 105, CO2 of 23, BUN 18, creatinine 5.04, GFR is only 11, glucose 105, calcium 8.6, potassium 5.0, magnesium 1.6. Iron 46, TIBC 189, transferrin 135, ferritin is very elevated 453.88. AST 34, ALT 21, alkaline phosphatase 43, albumin 2.6, globulin 6.6, . No serology. Hepatitis profile is pending. Urinalysis shows small amount of leukocytes and red blood cells. Coagulation showed PT 14.5, INR 1.08, PTT 30.3. CT of the head was done also, no intracranial pathology. CT of the abdomen and pelvis was done showed mild hepatomegaly, small fat containing hernia. Otherwise unremarkable exam. No evidence of cholelithiasis, nephrolithiasis, or appendicitis. Chest x-ray was done also normal. FINAL IMPRESSION: 1. Vomiting, which is resolving. 2. Qpuuw-an-dcgyctt renal failure, stage IV, on dialysis. 3. Uncontrolled hypertension with chronic renal failure. 4. Yduye-al-sktsnjd anemia. PLAN OF TREATMENT: We are going to start her on Catapres patch 0.3 mg once a week. She is on ceftriaxone 1 g IV once a day, Venofer 1000 mg IV once a day. She is on metoclopramide 20 mg IV one time, promethazine 25 mg IV q.6 hours as needed for nausea and vomiting, Tylenol 650 mg p.o. q.4 hours as needed for pain or fever or Tylenol 1000 mg IV q.6 hours as needed for pain or fever if the patient cannot tolerate p.o. Tylenol. Continue Excedrin one tablet q.6 hours as needed for headache, alprazolam 0.25 mg twice a day as needed for anxiety, Catapres 0.3 mg patch once a week, furosemide 40 mg IV as needed, heparin 5000 units IV as needed for the catheter . Continue hydralazine 25 mg three times a day, hydralazine 10 mg IV q.4 hours as needed for hypertension. She is also on metoprolol 50 mg twice a day and also metoprolol 5 mg IV q.6 hours as needed for hypertension if the patient unable to take oral metoprolol. She is also on Procardia XL 60 mg twice a day. She is on Zofran 4 mg IV q.6 hours as needed. She is on Protonix 40 mg IV twice a day. The patient is still in the intensive care unit. We are trying to optimize the antihypertensive regimen. MD VERONICA Rincon/ALEXANDER /[id number]
--- NOTE | 2019-07-13 15:05 | NUR ---
Visit made by the Spiritual Care Department Pastoral Visitor, Winston Herman. PV provided pastoral presence, hospitality, prayer, and supportive listening. Pastoral Visitor informed pt/family of the scope of [employer] and availability. KISHORE MIGUEL Compress Trucker Spiritual Care Department O: [phone] Pager: [phone] ([phone] number calling from)
[2019-07-13] MEDS: CEFTRIAXONE SOD 1 GM/NS 50 ML 50 ML IV SCH (15:45)
[2019-07-14] VITALS (8 sets, daily range): BP systolic 141–176; BP diastolic 84–103
[2019-07-14] MEDS: ONDANSETRON HCL INJ 2MG/ML 2ML 2 MG/ML VIAL IV SCH ×4 (00:29→16:59)
[2019-07-14 05:20] LABS: BASOPHILS # (AUTO) 0.1 (0.0-0.1); BASOPHILS % 0.7 % (0.0-1.0); EOSINOPHILS # (AUTO) 0.3 (0.0-0.4); EOSINOPHILS % 3.3 % (0.0-6.0); HEMATOCRIT 27.6 % (34.2-44.1); HEMOGLOBIN 8.9 g/dL (12.0-16.0); LYMPHOCYTES # (AUTO) 1.9 (1.0-3.2); LYMPHOCYTES % 21.1 % (18.0-39.1); MEAN CORPUSCULAR HEMOGLOBIN 29.6 pg (28-32); MEAN CORPUSCULAR HGB CONC 32.2 g/dL (31-35); MEAN CORPUSCULAR VOLUME 91.7 fL (81-99); MONOCYTES # (AUTO) 0.7 (0.2-0.8); MONOCYTES % 8.1 % (4.4-11.3); NEUTROPHILS # (AUTO) 5.9 (2.1-6.9); NEUTROPHILS % 65.8 % (38.7-80.0); PLATELET COUNT 200 x10e3/uL (140-360); RED BLOOD COUNT 3.01 x10e6/uL (3.6-5.1); RED CELL DISTRIBUTION WIDTH 15.3 % (11.7-14.4)
[2019-07-14 05:43] LABS: ALBUMIN 2.5 g/dL (3.5-5.0); ALBUMIN/GLOBULIN RATIO 0.4 (0.8-2.0); CALCIUM 8.3 mg/dL (8.4-10.2); CREATININE, SERUM 5.69 mg/dL (0.57-1.11); MAGNESIUM 1.7 MG/DL (1.3-2.1); PHOSPHORUS 5.3 MG/DL (2.3-4.7)
--- NOTE | 2019-07-14 07:34 | NUR ---
pt resting, vs stable. paged re labs
[2019-07-14] MEDS ORDERED: POTASSIUM CHLORIDE 20 MEQ TAB CR PO ONE ×2 (08:30→10:30)
[2019-07-14] MEDS: METOPROLOL SUCCINATE 50 MG TAB XL PO SCH ×2 (08:34→16:59)
[2019-07-14] MEDS: PANTOPRAZOLE 40 MG 10ML VIAL IV SCH ×2 (08:34→23:39)
[2019-07-14] MEDS: NIFEDIPINE CR 30 MG TAB PO SCH ×2 (08:34→23:41)
[2019-07-14] MEDS: HYDRALAZINE HCL 25 MG TAB PO SCH ×3 (08:34→23:40)
--- NOTE | 2019-07-14 09:41 | NUR ---
KARLA FROM [facility] CALLED [phone] AND IS AVAILABLE FOR DISCHARGE NEEDS.
[2019-07-14] MEDS: IRON SUCROSE 100 MG in SODIUM CHLORIDE 0.9% 100 ML 100 ML IV SCH (10:08)
[2019-07-14] MEDS: CEFTRIAXONE SOD 1 GM/NS 50 ML 50 ML IV SCH (16:59)
--- NOTE | 2019-07-14 17:00 | NUR ---
CALL PLACED TO [facility] PER DR HERNANDEZ REQUEST, INFORMED THAT PATIENT NEEDS HD TODAY, SPOKE TO [place] AND ALSO INFORMED ON SITE DIALYSIS NURSE OF ORDER
[2019-07-14] MEDS: PROMETHAZINE 25MG/SOD CHL 0.9% 50 ML IV PRN (20:00)
[2019-07-14] MEDS: HYDRALAZINE HCL 20 MG/ML VIAL IV PRN (20:11)
[2019-07-15] VITALS (8 sets, daily range): BP systolic 139–165; BP diastolic 80–102
[2019-07-15 05:44] LABS: BASOPHILS # (AUTO) 0.1 (0.0-0.1); BASOPHILS % 0.5 % (0.0-1.0); EOSINOPHILS # (AUTO) 0.3 (0.0-0.4); EOSINOPHILS % 2.6 % (0.0-6.0); HEMATOCRIT 28.1 % (34.2-44.1); HEMOGLOBIN 9.2 g/dL (12.0-16.0); LYMPHOCYTES # (AUTO) 1.9 (1.0-3.2); LYMPHOCYTES % 18.4 % (18.0-39.1); MEAN CORPUSCULAR HEMOGLOBIN 29.5 pg (28-32); MEAN CORPUSCULAR HGB CONC 32.7 g/dL (31-35); MEAN CORPUSCULAR VOLUME 90.1 fL (81-99); MONOCYTES # (AUTO) 0.8 (0.2-0.8); MONOCYTES % 8.3 % (4.4-11.3); NEUTROPHILS % 69.2 % (38.7-80.0); PLATELET COUNT 212 x10e3/uL (140-360); RED BLOOD COUNT 3.12 x10e6/uL (3.6-5.1); RED CELL DISTRIBUTION WIDTH 14.8 % (11.7-14.4)
[2019-07-15] MEDS: ONDANSETRON HCL INJ 2MG/ML 2ML 2 MG/ML VIAL IV SCH ×5 (05:50→23:27)
[2019-07-15 06:14] LABS: ALBUMIN 2.4 g/dL (3.5-5.0); ALBUMIN/GLOBULIN RATIO 0.4 (0.8-2.0); ANION GAP 8.3 mmol/L (8-16); CALCIUM 8.1 mg/dL (8.4-10.2); CREATININE, SERUM 4.6 mg/dL (0.57-1.11); MAGNESIUM 1.6 MG/DL (1.3-2.1); PHOSPHORUS 3.6 MG/DL (2.3-4.7); POTASSIUM 3.3 mmol/L (3.5-5.1)
[2019-07-15] MEDS: PANTOPRAZOLE 40 MG 10ML VIAL IV SCH ×2 (08:50→20:30)
[2019-07-15] MEDS: HYDRALAZINE HCL 25 MG TAB PO SCH ×3 (08:50→21:11)
[2019-07-15] MEDS: NIFEDIPINE CR 30 MG TAB PO SCH ×2 (08:50→21:11)
[2019-07-15] MEDS: METOPROLOL SUCCINATE 50 MG TAB XL PO SCH ×2 (08:51→17:00)
[2019-07-15] MEDS ORDERED: POTASSIUM CHLORIDE 20 MEQ TAB CR PO SCH (09:00)
[2019-07-15] MEDS: IRON SUCROSE 100 MG in SODIUM CHLORIDE 0.9% 100 ML 100 ML IV SCH (11:33)
[2019-07-15] MEDS: PROMETHAZINE 25MG/SOD CHL 0.9% 50 ML IV PRN (13:18)
[2019-07-15] MEDS ORDERED: SODIUM CHLORIDE 0.9% 1000ML 1,000 ML ONE (13:52)
--- NOTE | 2019-07-15 14:44 | NUR ---
Nutrition Screen Note RD Recommendation for Physician: - Continue GI Soft diet per Na and K trend - Rec checking Phos with next lab draw Plan of Care: RD following, monitoring for tolerance and adequacy Nutrition reason for involvement: LOS Primary Diagnose(s): accelerated HTN, anemia, CHF exacerbation, multiple myeloma now in kidney PMH: renal failure, cervical cancer Ht: 69 in Wt: 215 lb BMI: 31.7 kg/m2 IBW: [address] Assessment: (07/15) 51 YOF admitted for hypertensive urgency and CKD IV with N/V. Pt evaluated today for LOS. Pt discussed during am rounds. HD initiated this week, pt with CKD IV and ongoing HD needs TBD. Pt receiving HD tx at time of visit, HD RN asked that I not enter the room at this time. Per chart pt eating well, noted 75-100% meal intake. Per prior admit in June pt with insignificant wt change, current wt s/p fluid removal with HD tx. Per MD notes, vomiting has resolved. LBM 07/15. Skin intact. Chart reviewed. Labs and meds reviewed. Will monitor and continue to follow. Current Diet: GI Soft Malnutrition Evaluation (07/15/19) The patient does not meet criteria for a specified degree of malnutrition at this time. Will re-evaluate at follow-up as appropriate. Unable to assess at this time, pt receiving HD tx. Did not enter room per RN request. Diet Education Needs Assessment: Diet education indicated, pt not appropriate at this time- HD tx, RN asked RD to come back after tx. Tx will not be completed until later this evening. Will continue to monitor diet education needs. Diet tolerance: tolerating po Nutrition Care Level: low Signed: Caro Avilez RD, LD, [facility]
--- NOTE | 2019-07-15 16:20 | NUR ---
pt having dialysis now. per dr diaz, may downgrade to MS no tele if stable after
[2019-07-15] MEDS: CEFTRIAXONE SOD 1 GM/NS 50 ML 50 ML IV SCH (16:30)
[2019-07-15] MEDS: METOPROLOL TARTRATE INJ 1 MG/ML VIAL IV PRN (18:45)
--- NOTE | 2019-07-15 18:47 | Progress Note ---
DATE: 07/15/2019 SUBJECTIVE: A 53-year-old lady, who fortunately with history of multiple myeloma, renal failure. She had been seen by Dr. Holm for constant nausea. She is maintained on Zofran every day and Protonix twice a day. Today, she is awake, alert, oriented, comfortable in bed. She is still nauseated. She tolerated partial of her meal. She was started on Nepro today, but has not had a chance to try to see if that she can keep it down. She did have bowel movements earlier today. OBJECTIVE: VITAL SIGNS: Temperature 97, pulse 88, and blood pressure 161/100. LAB TESTS: White cell count 10, hemoglobin 9.2, and hematocrit 28. BUN 18, creatinine 4.6, sodium 131, potassium 3.3, calcium is normal, AST mildly elevated at 79, ALT 51, total bilirubin normal, and alkaline phosphatase normal. Blood culture negative and urine culture negative. CURRENT MEDICATIONS: She is on: 1. Iron. 2. Zofran. 3. Procardia XL. 4. Protonix twice a day. 5. Ceftriaxone. 6. Lopressor. 7. Toprol. 8. Xanax. 9. Hydralazine. 10. Lasix. Nothing to add from GI standpoint today. We will keep an eye on her. Hopefully, Nepro, she will be able to keep it down and that will help give her enough nutrition. Roslyn Sanderson MD RD/ALEXANDER /[id number]
--- NOTE | 2019-07-15 18:57 | NUR ---
dialysis removed 3liters
[2019-07-16] VITALS (9 sets, daily range): BP systolic 137–163; BP diastolic 84–98
[2019-07-16 04:38] LABS: BASOPHILS # (AUTO) 0.1 (0.0-0.1); BASOPHILS % 0.7 % (0.0-1.0); EOSINOPHILS # (AUTO) 0.3 (0.0-0.4); EOSINOPHILS % 2.8 % (0.0-6.0); HEMATOCRIT 28.2 % (34.2-44.1); HEMOGLOBIN 9.2 g/dL (12.0-16.0); LYMPHOCYTES # (AUTO) 2.1 (1.0-3.2); LYMPHOCYTES % 19.7 % (18.0-39.1); MEAN CORPUSCULAR HEMOGLOBIN 29.4 pg (28-32); MEAN CORPUSCULAR HGB CONC 32.6 g/dL (31-35); MEAN CORPUSCULAR VOLUME 90.1 fL (81-99); MONOCYTES # (AUTO) 0.9 (0.2-0.8); MONOCYTES % 8.1 % (4.4-11.3); NEUTROPHILS # (AUTO) 7.2 (2.1-6.9); NEUTROPHILS % 67.6 % (38.7-80.0); PLATELET COUNT 200 x10e3/uL (140-360); RED BLOOD COUNT 3.13 x10e6/uL (3.6-5.1); RED CELL DISTRIBUTION WIDTH 14.9 % (11.7-14.4)
[2019-07-16] MEDS: ONDANSETRON HCL INJ 2MG/ML 2ML 2 MG/ML VIAL IV SCH ×4 (04:49→18:05)
[2019-07-16 04:59] LABS: ALBUMIN 2.5 g/dL (3.5-5.0); ALBUMIN/GLOBULIN RATIO 0.4 (0.8-2.0); ANION GAP 8.6 mmol/L (8-16); CALCIUM 8.4 mg/dL (8.4-10.2); CREATININE, SERUM 4.54 mg/dL (0.57-1.11); MAGNESIUM 1.7 MG/DL (1.3-2.1); POTASSIUM 3.6 mmol/L (3.5-5.1)
--- NOTE | 2019-07-16 08:59 | NUR ---
SPOKE WITH PT EARLY THIS MORNING, SHE STATES SHE LIVES IN [place] [address] AND WANTS A DIALYSIS CLINIC CLOSE TO HER, SHE ALSO STATES SHE IS TRANSFERRING TO [facility] FOR HER MYLOMA. SPOKE WITH CM FOR DIRECTION. AND DR SMITH WILL SPEAK WITH PATIENT ABOUT CENTER LOCATIONS.
[2019-07-16] MEDS: PANTOPRAZOLE 40 MG 10ML VIAL IV SCH ×2 (09:38→21:28)
[2019-07-16] MEDS: HYDRALAZINE HCL 25 MG TAB PO SCH ×3 (09:38→21:28)
[2019-07-16] MEDS: METOPROLOL SUCCINATE 50 MG TAB XL PO SCH ×2 (09:39→18:05)
[2019-07-16] MEDS: NIFEDIPINE CR 30 MG TAB PO SCH ×2 (09:39→21:28)
[2019-07-16] MEDS: IRON SUCROSE 100 MG in SODIUM CHLORIDE 0.9% 100 ML 100 ML IV SCH (09:55)
[2019-07-16] MEDS ORDERED: LORAZEPAM 1 MG TAB PO ONE (14:15)
[2019-07-16] MEDS ORDERED: LIDOCAINE HCL 1% LOCAL INJ 20 ML VIAL ONE (14:18)
[2019-07-16] MEDS ORDERED: SODIUM CHLORIDE 0.9% 250ML 250 ML ONE ×2 (14:33→16:57)
--- NOTE | 2019-07-16 15:17 | NUR ---
Spoke with Dr. Locke regarding consult for patient.
--- NOTE | 2019-07-16 15:38 | NUR ---
PT WANTS [facility] FAXED CLINICALS TO ADMISSION LINE, CONTACTED AREA REP TO LET KNOW ON WAY TO HELP FACILITATE APPROVAL.
--- NOTE | 2019-07-16 16:24 | Diagnostic Imaging Report ---
PROCEDURE: Conversion of non-tunneled to tunneled central venous catheter Procedural Personnel Attending physician(s): Florentino Guaman MD Fellow physician(s): None Resident physician(s): None Advanced practice provider(s): None Pre-procedure diagnosis: Acute kidney injury Post-procedure diagnosis: Same Indication: Performance of hemodialysis Additional clinical history: None Complications: No immediate complications. IMPRESSION: Conversion of right-sided internal jugular non-tunneled central venous catheter for a tunneled catheter, with tip in the expected location of the superior right atrium. Plan: The catheter may be used immediately. PROCEDURE SUMMARY: - Temporary central venous catheter removal - Tunneled central venous catheter insertion with fluoroscopic guidance - Additional procedure(s): None PROCEDURE DETAILS: Pre-procedure History and imaging of central venous access reviewed (QCDR): Yes Consent: Informed consent for the procedure including risks, benefits and alternatives was obtained and time-out was performed prior to the procedure. Preparation (MIPS): The site was prepared and draped using all elements of maximal sterile barrier technique including sterile gloves, sterile gown, cap, mask, large sterile sheet, sterile ultrasound probe cover, hand hygiene and cutaneous antisepsis with 2% chlorhexidine. Medical reason for site preparation exception (MIPS): Not applicable Anesthesia/sedation Level of anesthesia/sedation: Minimal sedation (anxiolysis) Anesthesia/sedation administered by: Independent trained observer under attending supervision with continuous monitoring of the patient?s level of consciousness and physiologic status Catheter exchange Local anesthesia was administered. A wire was passed through the indwelling central venous catheter and into the central veins. The catheter was removed, and a peel-away sheath was placed. An incision was made near the venous access site and the catheter was tunneled subcutaneously to the venous access site. The catheter was advanced via a peel-away sheath into the vein under fluoroscopic guidance. Catheter tip location was fluoroscopically verified and a permanent image was stored. Catheter placed: Avenso Catheter size (Cook Islander): 16 Cook Islander Catheter flush: Heparin (1000 units/mL) Closure The access site was closed and a sterile bandage was applied. Access site closure technique: Tissue adhesive Catheter securement technique: Non-absorbable suture Contrast Contrast agent: None Radiation Dose Fluoroscopy time (seconds): 0.03 Reference air kerma (mGy): 3.1 Additional Details Additional description of procedure: None Equipment details: None Specimens removed: Temporary central venous catheter Estimated blood loss (mL): Less than 10 Standardized report: [email or web address] Attestation Signer name: Florentino Guaman MD I attest that I was present for the entire procedure. I reviewed the stored images and agree with the report as written. Signed by: Florentino Guaman MD on 07/16/2019 4:20 PM
[2019-07-16] MEDS: CEFTRIAXONE SOD 1 GM/NS 50 ML 50 ML IV SCH (18:04)
--- NOTE | 2019-07-16 18:06 | NUR ---
New IV to R wrist 20g
[2019-07-16] MEDS ORDERED: TEMAZEPAM 7.5 MG CAP PO PRN (18:30)
[2019-07-16] MEDS: ACETAMINOPHEN 325 MG TAB PO PRN (18:32)
--- NOTE | 2019-07-16 18:50 | NUR ---
Received report from previous nurse. Patient in bed. Call light within reach.
[2019-07-16] MEDS ORDERED: TEMAZEPAM 15 MG CAP PO PRN (20:30)
[2019-07-17] VITALS (7 sets, daily range): BP systolic 126–155; BP diastolic 78–107
[2019-07-17] MEDS: ONDANSETRON HCL INJ 2MG/ML 2ML 2 MG/ML VIAL IV SCH ×5 (00:06→21:23)
[2019-07-17] MEDS: ACETAMINOPHEN 325 MG TAB PO PRN ×2 (03:29→16:04)
--- NOTE | 2019-07-17 07:04 | NUR ---
Gave report to oncoming nurse. Call light within reach. Patient asleep in bed.
--- NOTE | 2019-07-17 08:37 | NUR ---
GOT CONFIRMATION ON DIALYSIS CHAIR FROM [facility] [phone] CHAIR TIME ISSUES IS SUN, SUNDAY AND SUNDAY AT 440 PM BEGINNING JULY 18 AT THE [facility] LOCATION [address] [facility] [place] [address] PHONE IS [phone]
[2019-07-17] MEDS: HYDRALAZINE HCL 25 MG TAB PO SCH ×3 (09:00→21:22)
[2019-07-17] MEDS: METOPROLOL SUCCINATE 50 MG TAB XL PO SCH ×2 (09:00→16:04)
[2019-07-17] MEDS: PANTOPRAZOLE 40 MG 10ML VIAL IV SCH ×2 (09:00→21:22)
[2019-07-17] MEDS: NIFEDIPINE CR 30 MG TAB PO SCH ×2 (09:00→21:22)
[2019-07-17] MEDS: IRON SUCROSE 100 MG in SODIUM CHLORIDE 0.9% 100 ML 100 ML IV SCH (09:00)
--- NOTE | 2019-07-17 13:21 | Consultation ---
DATE OF CONSULTATION: 07/11/[address] Trace Holm. HISTORY OF PRESENT ILLNESS: Angelina Quinonez is a 53-year-old female, who is well known to me and the patient was referred to me for evaluation of high total proteins, high globulins. Subsequently, a bone marrow was done in my office as an outpatient. This confirmed the patient to have multiple myeloma with involvement of 58% plasma cells. The patient's IgG levels are more than 4 g. This is an IgG kappa myeloma with renal failure. SOCIAL HISTORY: Noncontributory. FAMILY HISTORY: Noncontributory. ALLERGIES: REPORTED NONE. MEDICATIONS: At this time: 1. Ceftriaxone. 2. Promethazine. 3. Dextrose. 4. Hydralazine. 5. Ondansetron. 6. Metoprolol. 7. Protonix. 8. Tylenol. 9. Lorazepam. 10. Nifedipine. REVIEW OF SYSTEMS: HEENT: Normal. CARDIAC: History of hypertension. RESPIRATORY: Normal. GI: Normal. : Renal failure. MUSCULOSKELETAL: Multiple myeloma far advanced with renal failure. PHYSICAL EXAMINATION: GENERAL: A rather obese female, anemic. NECK: No palpable adenopathy. HEART: Within normal limits. LUNGS: Clear. BREASTS: Normal. ABDOMEN: Soft. RECTAL AND VAGINAL: Deferred. CENTRAL NERVOUS SYSTEM: Essentially normal. EXTREMITIES: Essentially normal. LABORATORY DATA: Lab shows a hemoglobin of 7.1, hematocrit of 22.4, white count of 8800, and platelets of 191,000. INR 1.08. Bilirubin 0.3, SGOT 21, SGPT 11, and alkaline phosphatase 38. BUN 31, creatinine 6.14, sodium 139, potassium 3.7, chloride 109, and CO2 22. IMPRESSION: 1. Multiple myeloma, IgG kappa. 2. Renal failure. 3. Hypertension. 4. Myelophthisic anemia. PLAN: Plan is to treat this patient with blood transfusion, systemic chemotherapy with Revlimid and Decadron. 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 Subsequently, I had suggested her to be referred to an institution, where she will be taken care of lifetime as Revlimid will have to be given lifetime and dialysis will have to be done lifetime. Prognosis of this patient remains extremely guarded because of far advanced renal failure. The discussion was carried out very openly and clearly. MD ESSIE Nunez/ALEXANDER /[id number] cc: MD Trace Luz MD Salman A Khan, MD
[2019-07-17] MEDS: CEFTRIAXONE SOD 1 GM/NS 50 ML 50 ML IV SCH (16:03)
[2019-07-18] VITALS: BP 140/83
--- NOTE | 2019-07-18 03:05 | Consultation ---
DATE OF CONSULTATION: 07/17/2019 REASON FOR CONSULT: End-stage renal failure, need for permanent dialysis access; requested by Dr. Serjio Henry. HISTORY: This is a 53-year-old lady with hypertension, CHF, anemia, and chronic renal insufficiency, who was admitted with nausea, vomiting, and found to be profoundly anemic. She had a diagnosis of multiple myeloma made. She also was initiated on dialysis. She has a right IJ tunneled catheter in place, which is functioning well. She is tolerating dialysis without difficulty. Permanent dialysis access is now required. Noninvasive imaging has been performed. Results are pending at this time. Computer restaurant line server is down. There is no history of heart attack or coronary artery stenting. No fevers or chills. Dispatcher Electric Power is Dr. Serjio Henry. Assembler Faucets is Dr. Serjio Holm. SOCIAL HISTORY: Negative for smoking, alcohol, or IV drugs. FAMILY HISTORY: Negative for early renal failure. MEDICATIONS: See MAR. ALLERGIES: NONE KNOWN. PAST MEDICAL HISTORY: Positive for hypertension, CHF, anemia, multiple myeloma, and renal insufficiency. REVIEW OF SYSTEMS: HEENT: Negative for tinnitus or visual problem. GENERAL: Negative for fevers or chills. NEUROLOGIC: Negative for dysarthria. Positive for seizures. Negative for focal neurologic weakness. CARDIAC: Negative for chest pain or palpitation. PULMONARY: Negative for shortness of breath or wheezing. GI: No constipation or diarrhea. : Negative for hematuria or dysuria. ENDOCRINE: Negative for polyuria or polydipsia. VASCULAR: Negative for claudication. SKIN: Negative for rashes or itching. HEMATOLOGIC: Negative for clotting or bleeding. INFECTIOUS: Negative for fevers or sweating. PSYCHIATRIC: Negative for depression or anxiety. PHYSICAL EXAMINATION: GENERAL: Well-developed, well-nourished lady, lying flat in bed. Her sister is at the bedside. VITAL SIGNS: Blood pressure 140/70, pulse 80 and regular, respirations 16 and unlabored. NECK: Supple and nontender. No JVD. CARDIAC: Shows a regular rate and rhythm. There is a normal S1 and S2. There is no S3, S4, rub, or murmur. LUNGS: Clear to auscultation and percussion bilaterally. ABDOMEN: Globally benign. Good bowel sounds. No hepatosplenomegaly. BACK: No CVA tenderness. No muscular spasm. EXTREMITIES: No cyanosis, clubbing, or edema. There is a right tunneled catheter in the right clavicular region inserted into the internal jugular. VASCULAR: Carotids 2+/2+ bilaterally. No carotid bruits. Brachials, radials, and femorals 2+/2+ bilaterally. Ulnar is 1+/2+ bilaterally. Cephalic vein is palpable in the median antecubital fossa and also somewhat in the forearm and in the upper arm bilaterally. SKIN: No rashes or nonhealing ulcers. MUSCULOSKELETAL: Full range of motion at all joints. No joint swelling. NEUROLOGIC: Cranial nerves 2 to 12 intact. Sensation intact to light touch and pinprick bilaterally. Strength 5/5 in all extremities. LYMPHATICS: Negative for cervical, clavicular, femoral adenopathy. LABORATORY DATA: Sodium 132, potassium 3.6, BUN 15, creatinine 4.5. White count 10.7, hemoglobin 9.2, hematocrit 28.2, and platelet count 200,000. INR is 1.08 with PT 14.5 and PTT 30.3. IMPRESSION: End-stage renal failure. Noninvasive vein mapping has been completed. Test site formal report is pending, but reportedly, the left upper extremity cephalic and basilic veins are acceptable vessels for fistula creation. I described the operation to the patient and her sister. I told them both that the risks of surgery would include , bleeding, infection, heart attack, stroke, pneumonia, prolonged ICU stay, mechanical ventilation, tracheostomy, permanent hand/limb muscle or nerve damage, hand/limb amputation, hand/limb chronic pain, a 10% to 15% chance of the fistula might not mature appropriately and require subsequent revision, further surgery, replacement, etc. The patient and her sister each stated that they understood, no further questions and wanted to proceed. The patient is scheduled for discharge tomorrow. We will contact her about an elective date within the next 5 to 10 days for surgery. MD VIOLETTA Olvera/ALEXANDER /[id number]
[2019-07-18 04:00] VITALS: BP 145/101
[2019-07-18] MEDS: ONDANSETRON HCL INJ 2MG/ML 2ML 2 MG/ML VIAL IV SCH ×3 (06:00→18:00)
--- NOTE | 2019-07-18 07:30 | NUR ---
Received patient this morning, a/ox3, in bed and no resp distress, call light within reach, pains well controlled, bed in low locked position, will monitor.
[2019-07-18 07:50] VITALS: BP 123/77
[2019-07-18] MEDS: PANTOPRAZOLE 40 MG 10ML VIAL IV SCH (09:00)
--- NOTE | 2019-07-18 09:03 | NUR ---
DR COFFMAN SAW PT LAST EVENING AND PLANS OP AV GRAFT PLAN DC HOME TODAY
[2019-07-18] MEDS: NIFEDIPINE CR 30 MG TAB PO SCH (09:13)
[2019-07-18] MEDS: HYDRALAZINE HCL 25 MG TAB PO SCH ×2 (09:13→15:00)
[2019-07-18] MEDS: IRON SUCROSE 100 MG in SODIUM CHLORIDE 0.9% 100 ML 100 ML IV SCH (09:14)
[2019-07-18] MEDS: METOPROLOL SUCCINATE 50 MG TAB XL PO SCH ×2 (09:14→16:35)
[2019-07-18 09:39] VITALS: BP 123/77
--- NOTE | 2019-07-18 10:08 | NUR ---
Rounds by Dr. Holm and inquiring feedback from Dr. Henry, checked with Dr. Henry and states ok to discharge patient. Rounds by Dr. Orr and ok to discharge.
[2019-07-18 11:45] VITALS: BP 151/95
--- NOTE | 2019-07-18 12:18 | NUR ---
No c/o nausea at this time, will monitor.
--- NOTE | 2019-07-18 13:23 | NUR ---
Call to Dr. Holm and notified Dr. Henry cleared patient for discharge. He will round again later tonight and discharge patient.
[2019-07-18 15:29] VITALS: BP 140/100
[2019-07-18] MEDS: CEFTRIAXONE SOD 1 GM/NS 50 ML 50 ML IV SCH (16:35)
--- NOTE | 2019-07-18 17:28 | NUR ---
Rounds by Dr. Holm and verbal order to discharge patient. Rounds by Dr. Henry and cleared for discharge. Patient to resume dialysis on Sunday at the dialysis center that has been set up for her.
--- NOTE | 2019-07-18 20:25 | Progress Note ---
DATE: 07/17/2019 Ms. Quinonez is doing fine. Her nausea is much better. She is able to tolerate her food better. She kept it down without any vomiting. She is undergoing dialysis. Nothing to add from GI standpoint. She will be going home to be followed as an outpatient and we will discharge her on antinausea medication. Roslyn Sanderson MD RD/ALEXANDER /[id number]
--- NOTE | 2019-08-03 04:33 | Discharge Summary ---
CHIEF COMPLAINT: Confusion, nausea, frequent vomiting, and weakness. FINAL DIAGNOSIS: Hypokalemia, multiple myeloma, hypertension, acute on chronic kidney disease, stage 3. DISPOSITION: Home. HOSPITAL COURSE: A 53-year-old female known history of uncontrolled essential systolic hypertension, chronic kidney disease, stage 3-4, recently diagnosed with multiple myeloma, now presents back to the ER with a one-week history of confusion, nausea, frequent vomiting associated with generalized weakness. No hematemesis. No melena. Her abdomen was showing to be diffuse tender. She underwent further evaluation and review of workup in the emergency room and admission was made regarding frequent vomiting, dehydration, multiple myeloma, hypertension, anemia of chronic disease. With admission, will be obtaining a CT scan of the abdomen and pelvis, requested Nephrology followup, Hematology-Oncology followup. With admission, she was being seen by Dr. Henry, Nephrology and following his review, his impression was underlying advanced kidney failure, perhaps end-stage renal disease. She is disabled from a renal standpoint. Possibility of dialysis and renal replacement therapy was discussed with the patient. Additional consult Dr. Lawton regarding altered mental status and with his review, his impression was altered mental status, acute kidney injury on chronic kidney disease versus myeloma kidney. Multiple myeloma. 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 She has significant amount of blasts in the marrow. Hypertension. Nausea and vomiting. We will be obtaining a CT of the head after dialysis started. Continue the antihypertensive. We will be advancing her diet as tolerated. Also being seen by Dr. Fall, Hematology-Oncology regarding her multiple myeloma condition. She had reported to him on outpatient basis and had a bone marrow in his office and the findings confirmed the presence of multiple myeloma. The IgG levels were noted to be more than 4 g and it was noted the patient presents with an IgG kappa myeloma with renal failure and with this further review, his impression was multiple myeloma IgG kappa. Renal failure. Hypertension. Myelophthisic anemia. Plan will be blood transfusions, systemic chemotherapy with Revlimid and Decadron. Finally, she was reviewed by Dr. Locke, Thoracic Surgery for placement of a permanent dialysis access. Currently, she does have an onboard right IJ tunneled catheter. With his review, his impression was end-stage renal failure. Noninvasive vein mapping has been completed. The procedure was discussed with the patient as well as family. The patient will be scheduled for the procedure. This will be done on an outpatient basis. She is also being seen by GI physician reviewed by Dr. Kendall Holm and his impression was nausea, vomiting, and upper abdominal pain. Has no hematopoiesis or melena. We will be continuing PPI as well as Reglan. Continues to have anemia issues, will be getting iron study, kidney disease stage [address]. The patient was placed on the Med-Surg floor. She is on a clear liquid diet. She is on a routine daily medication. Given IV fluids. Laboratory studies were being monitored closely. Noted to be anemic as well as having elevated kidney function. On 07/11/2019, the patient had a rapid response. She was having issues of altered mental status with questionable seizure. The patient was responsive to her rapid event. She was upgraded to ICU for further monitoring. Now, she is on a clear liquid diet, also receiving routine ICU protocol work. Her hypokalemia was being addressed as well. She was placed with a right IJ catheter and she was started on dialysis per Dr. Henry. Discussions were then being carried out for long-term dialysis with IV access. She was reviewed by Dr. Locke for the fistula placement and agreement was made to discharge the patient and to bring the patient back in for outpatient procedure. She was transfused. Her H and H are responded well post transfusion and she was able to be downgraded to [facility], where care was continued, dialysis was continued. Her nausea was noted to be resolved. She was tolerating p.o. diet fairly well. She was continuing with the Zofran and the Reglan. Her blood pressure was being watched closely as well. She was able to be downgraded further to the Med-Surg floor, where her care continued. She was still responding well with a GI soft diet, still having some issues with nausea, but she began to feel better overall. Her nausea was improved. The dialysis was improving her kidney function. She was also being placed on additional kidney supplement. Her hemoglobin was remaining stable post transfusion and discharge planning was finally placed and she was then released in stable condition. IMAGING: Chest shows no acute cardiopulmonary abnormality. Abdomen and pelvis CT shows mild hepatomegaly, small fat containing hernia. No evidence of cholelithiasis, nephrolithiasis, or appendicitis. She underwent a non-tunneled dialysis catheter placed monitored by ultrasound guided. Brain CT unremarkable. She underwent upper extremity venous mapping showing no evidence of venous thrombosis in the visualized vessels at superficial veins with adequate caliber. Cultures of blood, urine negative. LABORATORY STUDIES: Shows a CBC initial white cell count of 8000, initial H and H 7.1 and 22.4. Followup her H and H trended down to 6.9 and 21.8. She was transfused. H and H are post transfusion were 9.4 and 29.0. Final H and H 9.2 and 28.2, and platelets were stable. Urinalysis was showing 2+ protein, 6-10 rbc's per high-power field, 11-20 wbc's by high-power field. Creatinine clearance was low at 16. Urine total protein 24-hour period with [id number]. Chemistry reveals initial panel sodium normal, potassium low at 3.4. Kidney functions, BUN 31, creatinine 6.04. BNP was elevated at 2052.5. Total protein elevated at 9.6. Anemia panel, iron low at 46, TIBC low at 189, transferrin low at 135, ferritin elevated at 453.88. Sodium was noted to be low at 3.2 on 07/11/2019. Replenishment medications were administered. Continued to drop down to 3.0 on 07/14/2019. Final potassium is 3.6, BUN and creatinine are improved as her stay progressed and also dialysis procedures were being conducted. Final BUN 15, final creatinine 4.54. She improved dramatically and was feeling quite well. Discharge planning was put into place. The patient was able to be discharged home in stable, but guarded condition. With discharge, she will continue on her current diet. Continue with her IJ catheter. No drains or Hagen needed. Activity level as directed by myself, Dr. Fall, Dr. Locke, Dr. Henry, and Dr. Kendall Holm, and was instructed to make appointments with set physicians. Most important, Dr. Locke to set up the outpatient AV fistula placement as well as contacting Dr. Henry to set up the dialysis weekly programs. She will be following up with me in my office within 2-3 weeks. She will be continuing on hydralazine 25 mg p.o. t.i.d., metoprolol succinate 50 mg p.o. b.i.d., nifedipine 90 mg p.o. daily. Questions or concerns will be answered by myself with phone call. She will also be calling Dr. Fall, Dr. Henry, Dr. Locke as well for further questions regarding her set discussed. Dictated by HARLEEN Barrera Trace Holm MD CC/ALEXANDER /[id number]
== END 2019-07-18 18:14 | disposition home or self-care (01) | DRG 674 ==
LOC: ER 12:10 → ERHOLD 14:33 → MED/SURG 20:15 → ICU 07-11 19:30 → IMCU 07-14 06:18 → MED/SURG 07-15 20:01
PROC: 02HV33Z Insertion of Infusion Device into Superior Vena Cava, Percutaneous Approach (ICD-10-PCS; 2019-07-10)
PROC: 30243N1 Transfusion of Nonautologous Red Blood Cells into Central Vein, Percutaneous Approach (ICD-10-PCS; 2019-07-11)
PROC: 5A1D70Z Performance of Urinary Filtration, Intermittent, Less than 6 Hours Per Day (ICD-10-PCS; principal; 2019-07-12)
PROC: 5A1D70Z Performance of Urinary Filtration, Intermittent, Less than 6 Hours Per Day (ICD-10-PCS; 2019-07-12)
PROC: 5A1D70Z Performance of Urinary Filtration, Intermittent, Less than 6 Hours Per Day (ICD-10-PCS; 2019-07-14)
PROC: 5A1D70Z Performance of Urinary Filtration, Intermittent, Less than 6 Hours Per Day (ICD-10-PCS; 2019-07-15)
PROC: 0JH63XZ Insertion of Tunneled Vascular Access Device into Chest Subcutaneous Tissue and Fascia, Percutaneous Approach (ICD-10-PCS; 2019-07-16)
PROC: 02HV33Z Insertion of Infusion Device into Superior Vena Cava, Percutaneous Approach (ICD-10-PCS; 2019-07-16)
DX: N17.8 Other acute kidney failure (principal); C90.00 Multiple myeloma not having achieved remission; D61.82 Myelophthisis; I13.2 Hypertensive heart and chronic kidney disease with heart failure and with stage 5 chronic kidney disease, or end stage renal disease; N18.6 End stage renal disease; D63.1 Anemia in chronic kidney disease; R16.0 Hepatomegaly, not elsewhere classified; E87.6 Hypokalemia; G43.909 Migraine, unspecified, not intractable, without status migrainosus; E86.0 Dehydration; D63.8 Anemia in other chronic diseases classified elsewhere; I50.9 Heart failure, unspecified
CPT/HCPCS: 36415; 36556; 36558; 70450; 71045; 74176; 74470; 76937; 77001; 80048; 80053; 81001; 81050; 82550; 82553; 82575; 82607; 82728; 82948; 83540; 83735; 83880; 84100; 84156; 84466; 84484; 85025; 85045; 85610; 85730; 86704; 86705; 86850; 86900; 86920; 87040; 87086; 87340; 90962; 93005; 99284; C1769; J0360; J0696; J1644; J1756; J1940; J2001; J2060; J2405; J2550; J2765; J7030; J7050; P9016